=== PATIENT | male | born 1975 | race Two or more races ===

== ENCOUNTER 2017-07-16 12:00 | Observation (INO) | payer SELFPAY ==
[2017-07-16] MEDS ORDERED: Morphine INJ* 4 MG/ML 1 ML CARPUJECT IV ONE (12:16)
[2017-07-16] MEDS ORDERED: ceFAZolin 1 GM VIAL(*) 1 GM in NS 0.9% 50 ML* 50 ML IVPB ONE (12:18)
[2017-07-16] MEDS ORDERED: Tetan/Diph/Pertus SYR(Tdap)* 0.5 ML SYR(BOOSTRIX) use SYR IM ONE (12:28)
[2017-07-16] MEDS ORDERED: NS 0.9% 1000 ML* 1,000 ML IV ONE (12:28)
[2017-07-16] MEDS ORDERED: ceFAZolin 1 GM ADVAN(*) 1 GM in NS 0.9% 50 ML* 50 ML IVPB ONE (12:30)
[2017-07-16 13:27] LABS: Hematocrit 41 % (42-52); Hemoglobin 14.1 g/dl (14.0-18.0); Mean Corpuscular HGB Conc 34 g/dl (31-36); Mean Corpuscular Hemoglobin 30 pg (27-31); Mean Corpuscular Volume 87 fL (80-94); Mean Platelet Volume 8 um3 (7.4-10.4); Red Blood Count 4.72 10^6/ul (4.0-5.4); Red Cell Distribution Width 13 % (10.5-15); White Blood Count 15.7 10^3/ul (3.5-10.8)
--- NOTE | 2017-07-16 13:35 | RAD ---
Indication: Left thumb injury. 3 views of left thumb demonstrates a comminuted fracture through the medial middle phalanx of the thumb with soft tissue injury. IMPRESSION: Oblique fracture proximal phalanx of the thumb with soft tissue defect.
--- NOTE | 2017-07-16 13:36 | RAD ---
Indication: Indication: Wrist injury. 3 views of the left wrist demonstrates no fracture. Fracture of the proximal phalanx of the thumb is noted. There is a large soft tissue defect in the volar aspect of the hand and wrist. IMPRESSION: Fracture of the proximal phalanx of the thumb, large soft tissue defect on the volar aspect of the distal forearm and hand.
[2017-07-16 13:41] LABS: BUN/Creatinine Ratio 17.3 (8-20); Calcium 8.5 mg/dL (8.6-10.3); EGFR African American 147.6 (>60); EGFR Non-African American 114.8 (>60); Globulin 2.4 g/dL (2-4); Potassium 3.6 mmol/L (3.5-5.0); Total Protein 6.4 g/dL (6.4-8.9)
[2017-07-16] MEDS ORDERED: oxyCODONE TAB* 5 MG TAB PO PRN (15:11)
[2017-07-16] MEDS ORDERED: Acetaminophen TAB* 325 MG PO PRN (15:11)
[2017-07-16] MEDS ORDERED: Ondansetron TAB* 4 MG PO PRN (15:11)
[2017-07-16] MEDS ORDERED: oxyCODONE/Acetamin 5/325 MG* TAB PO PRN (15:11)
[2017-07-16] MEDS ORDERED: Morphine INJ* 2 MG/ML 1 ML SYRINGE (TWO MG - NEW SYRINGE VERSION) IV PRN (15:11)
[2017-07-16] MEDS ORDERED: diPHENhydraMINE IV* 50 MG/ML 1 ml VIAL (BENADRYL) IV PRN (15:11)
[2017-07-16] MEDS ORDERED: Ondansetron INJ* 2 MG/ML VIAL IV PRN (15:11)
[2017-07-16] MEDS ORDERED: HYDROmorphone INJ* 2 MG/ML CARPUJECT SYRINGE IV SLOW PU ONE (15:28)
[2017-07-16] MEDS ORDERED: HYDROmorphone INJ* 2 MG/ML CARPUJECT SYRINGE IV SLOW PU PRN (15:42)
[2017-07-16] MEDS ORDERED: Sodium Citrate/Citric Acid* 15 ML UDC PO ONE (16:46)
[2017-07-16] MEDS ORDERED: ceFAZolin 2 GM PREMIX (*) 2 GM/50 ML BAG IVPB ONE (17:28)
[2017-07-16] MEDS ORDERED: Lidocaine 2% PF * 5 ML VIAL ONE (17:33)
[2017-07-16] MEDS ORDERED: Succinylcholine* 20 MG/ML 10 ML VIAL ONE (17:33)
[2017-07-16] MEDS ORDERED: fentaNYL* 50 MCG/ML 2 ML VIAL (100 MCG VIAL) ONE ×2 (17:33→21:45)
[2017-07-16] MEDS ORDERED: Dexamethasone IV* 4 MG/ML 1 ML (4 MG) ONE (17:33)
[2017-07-16] MEDS ORDERED: Propofol* 10 MG/ML 20 ML BTL IV PUSH ONE (17:33)
[2017-07-16] MEDS ORDERED: Midazolam* 1 MG/ML 2 ML VIAL (2 MG) ONE (18:52)
[2017-07-16] MEDS ORDERED: Bupivacaine 0.25% SDV* 30 ML ONE (19:39)
[2017-07-16] MEDS ORDERED: fentaNYL* 50 MCG/ML 2 ML VIAL (100 MCG VIAL) IV PRN (19:50)
[2017-07-16] MEDS ORDERED: Ketorolac INJ* 30 MG/ML 1 ML VIAL IV PRN (19:50)
--- NOTE | 2017-07-16 21:15 | CONSULT ---
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 Brendon reports decreased sensation and inability to move hand or wrist. He is seen today with a coworker who accompanied him by EMS, patient is Romansh speaking. He has already had multiple view x-rays of his left wrist and hand which show oblique fracture of the left thumb proximal phalanx and significant soft tissue defects of his left thumb extending to radial aspect of his forearm. He has received IV pain medication and 1 dose Ancef in ED. Home medications: NK [No Home Medications Reported] 07/16/17 [History Confirmed 07/16/17] PMH: Patient denies any history of medical problems. PSH: No previous surgeries. PE: Vital Signs Temp Pulse Resp BP Pulse Ox 98.7 F 78 16 130/68 97 07/16/17 16:43 07/16/17 16:43 07/16/17 16:43 07/16/17 16:43 07/16/17 16:43 General: Patient is lying supine in ED gurney appearing uncomfortable, he is alert and oriented, has significant laceration of left arm covered loosely in gauze 4x4s. LUE: Open laceration of left arm extending from distal 1/3 of forearm to just proximal of IP joint of thumb. Tissue is swollen and severed tendons and muscle bellies are visualized. Sensation intact to wrist and decreased on palmar radial hand and palmar digits 1-4. Sensation intact dorsal hand to distal phalanges. Able to wiggle distal phalanges of fingers 4 and 5. Patient not able to extend further flex fingers, wrist, he endorses too severe of pain to try. Full movement at left elbow. Capillary refill brisk. Laboratory Last Values WBC 15.7 10^3/ul (3.5-10.8) H 07/16/17 13:15 RBC 4.72 10^6/ul (4.0-5.4) 07/16/17 13:15 Hgb 14.1 g/dl (14.0-18.0) 07/16/17 13:15 Hct 41 % (42-52) L 07/16/17 13:15 MCV 87 fL (80-94) 07/16/17 13:15 MCH 30 pg (27-31) 07/16/17 13:15 MCHC 34 g/dl (31-36) 07/16/17 13:15 RDW 13 % (10.5-15) 07/16/17 13:15 Plt Count 202 10^3/ul (150-450) 07/16/17 13:15 MPV 8 um3 (7.4-10.4) 07/16/17 13:15 INR (Anticoag Therapy) 0.85 (0.77-1.02) 07/16/17 13:15 APTT 29.3 seconds (26.0-36.3) 07/16/17 13:15 Sodium 137 mmol/L (133-145) 07/16/17 13:15 Potassium 3.6 mmol/L (3.5-5.0) 07/16/17 13:15 Chloride 105 mmol/L (101-111) 07/16/17 13:15 Carbon Dioxide 26 mmol/L (22-32) 07/16/17 13:15 Anion Gap 6 mmol/L (2-11) 07/16/17 13:15 BUN 13 mg/dL (6-24) 07/16/17 13:15 Creatinine 0.75 mg/dL (0.67-1.17) 07/16/17 13:15 Est GFR ( Amer) 147.6 (>60) 07/16/17 13:15 Est GFR (Non-Af Amer) 114.8 (>60) 07/16/17 13:15 BUN/Creatinine Ratio 17.3 (8-20) 07/16/17 13:15 Glucose 104 mg/dL (70-100) H 07/16/17 13:15 Calcium 8.5 mg/dL (8.6-10.3) L 07/16/17 13:15 Total Bilirubin 2.00 mg/dL (0.2-1.0) H 07/16/17 13:15 AST 31 U/L (13-39) 07/16/17 13:15 ALT 33 U/L (7-52) 07/16/17 13:15 Alkaline Phosphatase 61 U/L (34-104) 07/16/17 13:15 Total Protein 6.4 g/dL (6.4-8.9) 07/16/17 13:15 Albumin 4.0 g/dL (3.2-5.2) 07/16/17 13:15 Globulin 2.4 g/dL (2-4) 07/16/17 13:15 Albumin/Globulin Ratio 1.7 (1-3) 07/16/17 13:15 Blood Type O Positive 07/16/17 13:15 Antibody Screen Negative 07/16/17 13:15 Imaging: Left Wrist XR Radiology Interpretation Completed By: Radiologist - Wrist XR, per radiologist, reveals fracture of the proximal phalanx of the thumb, large soft tissue defect on the volar aspect of the distal forearm and hand. Left Hand XR Radiology Interpretation Completed By: Radiologist - Hand XR, per radiologist, reveals oblique fracture proximal phalanx of the thumb with soft tissue defect. Dr. Matos has reviewed this radiology report. A: Case discussed with Dr. Jose Martin Chi (ortho money position officer) and Dr. 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 P: - Plan to take to OR tonight with Dr. Mabel Oliver, last oral intake 1/2 bottle water at 11:00 am - Labs previously obtained: CBC, BMP, Coag, will add on type and screen - IV Ancef 12:18 pm, plan 2nd dose within hour of surgery - Patient will be admitted to short stay surgical services - Dr. Matos notified of admission and plan Destiney Yip PA-C
[2017-07-16] MEDS ORDERED: Morphine INJ* 4 MG/ML 1 ML CARPUJECT IV PRN (21:27)
--- NOTE | 2017-07-16 21:39 | ED ---
Tiffanie Vargas Nilda, scribed for Daren Matos MD on 07/16/17 at 1232 . Adult Trauma - HPI Summary HPI Summary: This patient is a 42 year old M BIBA to [facility] accompanied by friend with a chief complaint of laceration to LUE (from left thumb to mid arm) at around 1000 today. 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 The patient rates the pain 9/10 in severity. Symptoms aggravated by palpation and movement. Pain alleviated by rest and morphine administered by EMS TIRE REPAIRMAN. Per triage note, pt has very little feeling and decreased ability to move fingers. Pt states he has not had a tetanus shot for 12 years. Pt is Hebrew speaking and his friend served as lamp inspector. - History of Current Complaint Chief Complaint: EDExtremityUpper Stated Complaint: LT ARM/HAND LAC Time Seen by Provider: 07/16/17 12:15 Hx Obtained From: Patient, Other: - friend Mechanism of Injury: Incised Ambulatory at the Scene: Yes Loss of Consciousness: no loss of consciousness Onset/Duration: Started Hours Ago, Traumatic, Still Present Onset of Pain: Immediate Onset Severity: Severe Current Severity: Severe Pain Intensity: 9 Pain Scale Used: 0-10 Numeric Location: Extremities - left arm Character: Sharp Aggravating Factor(s): Movement, Palpation Alleviating Factor(s): Rest, Medications - Morphine Associated Signs & Symptoms: Positive: Other: - LUE pain, very little feeling and decreased ability to move fingers Related History: Occupational Injury - Allergy/Home Medications Allergies/Adverse Reactions: Allergies Allergy/AdvReac Type Severity Reaction Status Date / Time No Known Allergies Allergy Verified 07/16/17 12:18 Home Medications: Home Medications NK [No Home Medications Reported] 07/16/17 [History Confirmed 07/16/17] PMH/Surg Hx/FS Hx/Imm Hx Endocrine/Hematology History: Denies: Hx Diabetes Cardiovascular History: Denies: Hx Hypertension Infectious Disease History: No Infectious Disease History: Denies: Traveled Outside the [place] in Last 30 Days - Family History Known Family History: Negative: Cardiac Disease, Hypertension - Social History 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 Negative: Myalgia, Edema Negative: Rash Neurological: Other - negative dizziness All Other Systems Reviewed And Are Negative: Yes Physical Exam - Summary Physical Exam Summary: Constitutional: Well-developed, Well-nourished, Alert, Cooperative, Pain distress Skin: Warm, Dry HENT: Normocephalic; No Racoons eyes; No battles sign; No abrasion; No contusion ; No hemotympanum; No maxilla facial tenderness or instability; Dentition are smooth; No dental trauma; No trismus Eyes: EOM normal, PERRL Neck: Trachea is midline. No stridor; No JVD; No step off; No posterior cervical spine tenderness Cardio: Rhythm regular, rate normal Heart sounds normal; Intact distal pulses; The pedal pulses are 2+ and symmetric. Radial pulses are 2+ and symmetric. Pulmonary/Chest wall: Effort normal; Breath sounds normal; Equal chest rise; No flail segment; No rib tenderness; No sternal tenderness Abd: Soft, Appearance normal. No distension; No tenderness; No palpable pulsatile mass; No Cullens sign; No Cordova-Turners sign Musculoskeletal: No paraspinal tenderness; No step off or deformity of the spine ; Pelvis is stable to lateral compression and rock; Tendons appear grossly interrupted over the dorsal midline aspect of left thumb extending group home up forearm; Radial artery seems to be spared; Capillary refill less than 2 seconds in fingers; sensation diminished in all fingers'; fingers held in flexion; pt unable to flex wrist, unable to move thumb Neuro: Alert, Oriented x3 : DEFERRED Psych: Mood and affect Normal Triage Information Reviewed: Yes Vital Signs On Initial Exam: Initial Vitals Temp Pulse Resp BP Pulse Ox 98.2 F 76 16 134/94 100 07/16/17 12:13 07/16/17 12:13 07/16/17 12:13 07/16/17 12:13 07/16/17 12:13 Vital Signs Reviewed: Yes Diagnostics - Vital Signs Vital Signs Temp Pulse Resp BP Pulse Ox 07/16/17 12:13 98.2 F 76 16 134/94 100 - Laboratory Lab Results: Lab Results 07/16/17 07/16/17 07/16/17 Range/Units 13:15 13:15 13:15 WBC 15.7 H (3.5-10.8) 10^3/ul RBC 4.72 (4.0-5.4) 10^6/ul Hgb 14.1 (14.0-18.0) g/dl Hct 41 L (42-52) % MCV 87 (80-94) fL MCH 30 (27-31) pg MCHC 34 (31-36) g/dl RDW 13 (10.5-15) % Plt Count 202 (150-450) 10^3/ul MPV 8 (7.4-10.4) um3 INR (Anticoag Therapy) 0.85 (0.77-1.02) APTT 29.3 (26.0-36.3) seconds Sodium 137 (133-145) mmol/L Potassium 3.6 (3.5-5.0) mmol/L Chloride 105 (101-111) mmol/L Carbon Dioxide 26 (22-32) mmol/L Anion Gap 6 (2-11) mmol/L BUN 13 (6-24) mg/dL Creatinine 0.75 (0.67-1.17) mg/dL Est GFR ( Amer) 147.6 (>60) Est GFR (Non-Af Amer) 114.8 (>60) BUN/Creatinine Ratio 17.3 (8-20) Glucose 104 H (70-100) mg/dL Calcium 8.5 L (8.6-10.3) mg/dL Total Bilirubin 2.00 H (0.2-1.0) mg/dL AST 31 (13-39) U/L ALT 33 (7-52) U/L Alkaline Phosphatase 61 (34-104) U/L Total Protein 6.4 (6.4-8.9) g/dL Albumin 4.0 (3.2-5.2) g/dL Globulin 2.4 (2-4) g/dL Albumin/Globulin Ratio 1.7 (1-3) Blood Type Antibody Screen 07/16/17 Range/Units 13:15 WBC (3.5-10.8) 10^3/ul RBC (4.0-5.4) 10^6/ul Hgb (14.0-18.0) g/dl Hct (42-52) % MCV (80-94) fL MCH (27-31) pg MCHC (31-36) g/dl RDW (10.5-15) % Plt Count (150-450) 10^3/ul MPV (7.4-10.4) um3 INR (Anticoag Therapy) (0.77-1.02) APTT (26.0-36.3) seconds Sodium (133-145) mmol/L Potassium (3.5-5.0) mmol/L Chloride (101-111) mmol/L Carbon Dioxide (22-32) mmol/L Anion Gap (2-11) mmol/L BUN (6-24) mg/dL Creatinine (0.67-1.17) mg/dL Est GFR ( Amer) (>60) Est GFR (Non-Af Amer) (>60) BUN/Creatinine Ratio (8-20) Glucose (70-100) mg/dL Calcium (8.6-10.3) mg/dL Total Bilirubin (0.2-1.0) mg/dL AST (13-39) U/L ALT (7-52) U/L Alkaline Phosphatase (34-104) U/L Total Protein (6.4-8.9) g/dL Albumin (3.2-5.2) g/dL Globulin (2-4) g/dL Albumin/Globulin Ratio (1-3) Blood Type O Positive Antibody Screen Negative Result Diagrams: 17 13:15 07/16/17 13:15 Lab Statement: Any lab studies that have been ordered have been reviewed, and results considered in the medical decision making process. - Radiology Wrist XR Radiology Interpretation Completed By: Radiologist - Wrist XR, per radiologist, reveals fracture of the proximal phalanx of the thumb, large soft tissue defect on the volar aspect of the distal forearm and hand. Dr. Matos has reviewed this radiology report. Hand XR Radiology Interpretation Completed By: Radiologist - Hand XR, per radiologist, reveals oblique fracture proximal phalanx of the thumb with soft tissue defect. Dr. Matos has reviewed this radiology report. Adult Trauma Course/Dx - Course Assessment/Plan: This patient is a 42 year old M BIBA to [facility] accompanied by friend with a chief complaint of laceration to LUE (from left thumb to mid arm) at around 1000 today. 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 The patient rates the pain 9/10 in severity. Symptoms aggravated by palpation and movement. Pain alleviated by rest and morphine administered by EMS TIRE REPAIRMAN. Per triage note, pt has very little feeling and decreased ability to move fingers. Pt states he has not had a tetanus shot for 12 years. Pt is Hebrew speaking and his friend served as lamp inspector. In the ED course, the patient was given morphine, cefazolin, Tdap, and IV fluids. Pending Hand and Wrist XR. Hand XR, per radiologist, reveals oblique fracture proximal phalanx of the thumb with soft tissue defect. Wrist XR, per radiologist, reveals fracture of the proximal phalanx of the thumb, large soft tissue defect on the volar aspect of the distal forearm and hand. Dr. Matos has reviewed these radiology reports. [1315] Dr. Chi (hand surgeon) agrees to send team down to ED to evaluate pt. [1335] Dr. Chi would like to know if pt can go to his office for evaluation but Dr. Matos notes pt is currently receiving IV fluids and meds in ED. [1532] Destiney ( Ortho PA) states pt will be admitted for same day surgery. Pt is stable and will be admitted for same day surgery in OR with Dx of tendon laceration of hand and tendon laceration of forearm. Pt understands and is agreeable with this plan. 45 mins CCT. - Diagnoses Provider Diagnoses: Hand laceration involving tendon, Forearm laceration involving tendon - Physician Notifications Discussed Care Of Patient With: Nicola Chi - Hand surgeon Time Discussed With Above Provider: 13:15 Instructed by Provider To: MD Will See In ED - agrees to send team down to ED to evaluate pt. - Critical Care Time Critical Care Time: 30-74 min - 45 mins Discharge - Discharge Plan Condition: Stable Disposition: ADMITTED TO [facility] documentation as recorded by the Tiffanie gottlieb Nilda accurately reflects the service I personally performed and the decisions made by Carlo grider Jerry, MD.
[2017-07-16] MEDS ORDERED: Ketorolac INJ* 30 MG/ML 1 ML VIAL ONE (21:45)
[2017-07-16] MEDS: oxyCODONE/Acetamin 5/325 MG* TAB PO PRN (23:49)
[2017-07-17] MEDS: ceFAZolin 1 GM VIAL(*) 1 GM in NS 0.9% 50 ML* 50 ML IVPB SCH ×2 (01:50→10:07)
--- NOTE | 2017-07-17 04:22 | OP ---
DATE OF OPERATION: 07/16/17 - ROOM #347 DATE OF : 77 SURGEON: Carmelo Oliver MD POULTRY HATCHERY MAN: KIRAN Martines. An volunteer assistant was needed for the procedure to aid in positioning of the arm retraction. ANESTHESIOLOGIST: Dr. Puentes. ANESTHESIA: General. PRE-OP DIAGNOSIS: Table saw injury left forearm, wrist, hand and thumb with tendon and bony injury. POST-OP DIAGNOSIS: Table saw injury left forearm, wrist, hand and thumb with tendon and bony injury. OPERATIVE PROCEDURE: 1. Exploration of penetrating left forearm wound including the median nerve, radial artery, and tendons 2. Debridement of skin, subcutaneous tissue, muscle and bone of left thumb proximal phalanx intraarticular open fracture. 3. Debridement of the skin and subcutaneous tissue, muscle and fascia left forearm wrist and hand. 4. Open reduction internal fixation of left thumb proximal phalanx intraarticular open fracture. 5. Irrigation and debridement of left thumb open metacarpophalangeal traumatic arthrotomy. 6. Repair of radial collateral ligament, left thumb metacarpophalangeal joint. 7. Repair of the left flexor pollicis longus tendon in the level of the thenar musculature. 8. Repair of the left thumb partial extensor tendon laceration over the proximal phalanx. 9. Ligation of the lacerated left radial artery. 10. Excision of the left flexor carpi radialis tendon. 11. Closure of traumatic wound measuring 30 cm. 12. Left carpal tunnel release. INDICATIONS: Brendon had a day very extensive table saw injury to the volar radial aspect of the left forearm, the volar radial wrist through the thenar musculature and up onto the left thumb. There was an open left thumb metacarpophalangeal joint with an open fracture of the intra-articular left thumb proximal phalanx fracture. Preoperatively, the median nerve has very poor sensation. The thumb was grossly unstable. The hand was warm and well perfused , and despite the likely radial artery injury. I had talked to him about exploring the wound and repairing the tendons and nerve as needed. He had really minimal sensation in the median nerve distribution distally. Sensation was completely normal in the ulnar nerve distribution and over the dorsal radial hand. I had told him that if the median nerve was lacerated given that it was the table saw injury, there would be a very wide zone of injury and would require cable grafting with the sural nerve. I told him that there was a possibility that we would harvest the sural nerve. He understood all of this. We used the translators as he his primarily Upper Sorbian speaking. He wished to proceed. ESTIMATED BLOOD LOSS: 50 mL. COMPLICATIONS: None. FINDINGS: The median nerve was in continuity throughout with the exception of a lacerated motor branch right at the level of the entry point into where it arborized and entered the thenar musculature. This was unrepairable. The remainder of the median nerve was completely in continuity. The FPL tendon was lacerated at the level of the thenar muscles. The remainder of the flexor tendons to all of the fingers were explored and were found to be intact. The dorsal radial sensory nerve was explored and found to be intact. The radial artery was lacerated and at the level of the distal third of the forearm and was unrepairable without vein grafting. DESCRIPTION OF PROCEDURE: Brendon was seen in the preoperative holding area with the use of a director oracle. We went ahead and got informed consent, discussed his injury. We talked about risks and benefits including the expected recovery. He understood that the nerve if lacerated would likely require cable grafting and that nerve recovery in a 41-year-old is unpredictable. We then came back to the operating room where the arm was prepped and draped in the usual fashion with Betadine. The leg was prepped out with ChloraPrep. A time-out was performed. I began by exsanguinating the arm with the Esmarch and the tourniquet was inflated to 250 mmHg. The traumatic incision was then extended proximally in a curvilinear fashion. The dissection was carried down where I made the incision to the fascia, the fascia there was opened. The median nerve and radial neurovascular bundle were encountered proximally and healthy tissue. These were then dissected out distally. The radial artery was lacerated at the distal third of the forearm and had a quite extensive zone of injury. The brachioradialis had a small partial laceration that was debrided. The radial sensory nerve was seen to be intact, exiting out the dorsal to the brachioradialis. The median nerve was encountered proximally and healthy tissue and dissected out distally. The motor branch was lacerated right where it branched and entered the thenar muscles just on the radial aspect of the transverse carpal ligament, this was unrepairable. The remainder of the nerve was completely in continuity and I did not see any partial lacerations in the median nerve. When I got distal in order to obtain adequate visualization and also given the magnitude of his injury and need for extensive tourniquet during the operation causing reperfusion swelling and given his preop median nerve symptoms, I did go ahead decompress the carpal tunnel. I made a 2 to 3 cm incision in the standard location for an open carpal tunnel release. Dissection was carried down. The palmar fascia was incised. I went ahead and released the transverse carpal ligament just at the radial aspect of the hook of the hamate. Proximally , I brought my incision back radially to the traumatic wound. Dissection was carried down very carefully and the palmar cutaneous branch in the median nerve was identified and preserved throughout the entirety of the case. With the carpal tunnel fully released, I was able to inspet the median nerve all the way down into where it branched into the common digital nerves and it was indeed intact throughout the entirety of the course with the exception of the thenar motor branch laceration as previously mentioned. At this point, the FPL tendon was seen lacerated, the FCR tendon was completely lacerated and shredded over a couple of centimeter segment. The FPL laceration was more clean. I went ahead and released the transverse carpal ligament just off its radial aspect and then dissected down through the thenar muscles to encounter the distal stump of the FPL tendon. The thenar muscles were already 80% lacerated. I went ahead and found the proper digital nerves in the base of the wound. The FPL tendon again was lacerated proximal to the proper digital nerves. Once I had identified all the structures, I went ahead and performed an irrigation and debridement of my open fracture and my traumatic arthrotomy to the MCP joint. The radial collateral ligament had been sheared off the metacarpal head. I was able to after cleaning out the open fracture reduced it and fixation was performed with 2 traversing 0.045 K-wires. The articular surface actually reduced very nicely. The MCP joint was then reduced and pinned in place with another 0.045 K-wire crossing the joint. With the fracture reduced and fixed and the joint pinned into place, I went ahead and was able to easily oppose the radial collateral ligament to the radial aspect of the metacarpal head where it had been sheared off. I went ahead and placed a Mini Mitek suture anchor in the footprint of the ligament and then repaired the radial collateral ligament back to its origin with the 2-0 Ethibond suture coming off the suture anchor. At this point, I went ahead and examined my extensor tendon. There was a 60% partial laceration across the proximal phalanx , it was opposable. The edges of the partial laceration were opposable. I went ahead and took a 3-0 Ethibond suture and placed a couple of figure-of- eight sutures to oppose the tendon edges and that actually came together pretty nicely. Once the extensor tendon laceration was repaired, I went ahead and turned my attention to the FPL tendon. I pinned it in near apposition with a 25-gauge hypodermic needle. I then placed a 4-strand cruciate core suture with 3-0 Ethibond and apposed the edges of the tendon. There was no gapping with passive motion. The edges of the repair were secured with a 5-0 Prolene epitendinous suture. With the tendon repaired, I went ahead and placed it back inside the carpal tunnel and repaired the radial aspect of the transverse carpal ligament with a few 3-0 Vicryl [id number] sutures. I then came proximally and decided that my FCR tendon was simply not repairable given that it was shredded over a multi-centimeter segment, so I went ahead and took this back to the musculotendinous junction and excised the tendon. The ends of the radial artery were ligated with 3-0 Vicryl suture. At this point, the wound was copiously irrigated. I went ahead and took a 15 blade and excised the very traumatized millimeter or two off of each skin edge over the traumatic wound. Once it was all clean healthy edges, I went ahead and took the stapler and closed the wound proximally. When I got to the level of the wrist joint, I closed the remainder of the wound with 3-0 and then 4-0 nylon suture. The carpal tunnel release incision was likewise closed with the nylon suture. The operative area was infiltrated with 0.25% plain Marcaine. The wounds were dressed with Xeroform, 4x4s, sterile Webril. The 3 K-wires were bent and clipped and dressed with Xeroform and 4x4s. I then placed a very loose thumb Spica splint with a volar cock-up slab of plaster as well. The tourniquet was deflated during wound closure. The hand pinked up immediately. Total tourniquet time was 131 minutes. After the splint placement, the patient was woken up and taken to recovery room in stable condition. [id number]/[facility] #: [id number] LINDA
[2017-07-17 05:46] LABS: Hematocrit 38 % (42-52); Hemoglobin 12.9 g/dl (14.0-18.0)
[2017-07-17 06:13] LABS: BUN/Creatinine Ratio 14.3 (8-20); Calcium 8.3 mg/dL (8.6-10.3); EGFR African American 159.8 (>60); EGFR Non-African American 124.3 (>60); Potassium 3.7 mmol/L (3.5-5.0)
[2017-07-17] MEDS: oxyCODONE/Acetamin 5/325 MG* TAB PO PRN ×3 (07:52→15:41)
--- NOTE | 2017-07-17 08:36 | PN ---
Progress Note - Progress Note Date of Service: 07/17/17 SOAP: Subjective: []Patient seen at bedside. His pain is well controlled. He has no chest pain, shortness of breath, fever, nausea or dizziness. Objective: [] Vital Signs Temp 97.5 F 07/17/17 07:51 Pulse 72 07/17/17 07:51 Resp 18 07/17/17 07:52 BP 113/62 07/17/17 07:51 Pulse Ox 97 07/17/17 07:51 Intake & Output 07/16/17 07/17/17 07/17/17 18:59 06:59 18:59 Intake Total 1100 1800 0 Output Total 1500 600 Balance 1100 300 -600 Weight 140 lb 140 lb Intake: IV Fluids 1100 1100 LR 1100 NS 50ML, Cefazolin 2G 50 Oral 700 0 Output: Urine 1100 600 Duran 400 Other: Estimated Blood Loss 100 Comment Laboratory Last Values WBC 15.7 10^3/ul (3.5-10.8) H 07/16/17 13:15 RBC 4.72 10^6/ul (4.0-5.4) 07/16/17 13:15 Hgb 12.9 g/dl (14.0-18.0) L 07/17/17 05:19 Hct 38 % (42-52) L 07/17/17 05:19 MCV 87 fL (80-94) 07/16/17 13:15 MCH 30 pg (27-31) 07/16/17 13:15 MCHC 34 g/dl (31-36) 07/16/17 13:15 RDW 13 % (10.5-15) 07/16/17 13:15 Plt Count 202 10^3/ul (150-450) 07/16/17 13:15 MPV 8 um3 (7.4-10.4) 07/16/17 13:15 INR (Anticoag Therapy) 0.85 (0.77-1.02) 07/16/17 13:15 APTT 29.3 seconds (26.0-36.3) 07/16/17 13:15 Sodium 135 mmol/L (133-145) 07/17/17 05:19 Potassium 3.7 mmol/L (3.5-5.0) 07/17/17 05:19 Chloride 102 mmol/L (101-111) 07/17/17 05:19 Carbon Dioxide 27 mmol/L (22-32) 07/17/17 05:19 Anion Gap 6 mmol/L (2-11) 07/17/17 05:19 BUN 10 mg/dL (6-24) 07/17/17 05:19 Creatinine 0.70 mg/dL (0.67-1.17) 07/17/17 05:19 Est GFR ( Amer) 159.8 (>60) 07/17/17 05:19 Est GFR (Non-Af Amer) 124.3 (>60) 07/17/17 05:19 BUN/Creatinine Ratio 14.3 (8-20) 07/17/17 05:19 Glucose 129 mg/dL (70-100) H 07/17/17 05:19 Calcium 8.3 mg/dL (8.6-10.3) L 07/17/17 05:19 Total Bilirubin 2.00 mg/dL (0.2-1.0) H 07/16/17 13:15 AST 31 U/L (13-39) 07/16/17 13:15 ALT 33 U/L (7-52) 07/16/17 13:15 Alkaline Phosphatase 61 U/L (34-104) 07/16/17 13:15 Total Protein 6.4 g/dL (6.4-8.9) 07/16/17 13:15 Albumin 4.0 g/dL (3.2-5.2) 07/16/17 13:15 Globulin 2.4 g/dL (2-4) 07/16/17 13:15 Albumin/Globulin Ratio 1.7 (1-3) 07/16/17 13:15 Blood Type O Positive 07/16/17 13:15 Antibody Screen Negative 07/16/17 13:15 General: Well appearing, in no acute distress LUE: Splint in place, CDI. Digits 4 and 5 with good ROM and intact sensation. Digits 2 and 3 with intact but decreased sensation, very minimal and inconsistent ability to produce any movement. 1st digit with only distal tip exposed lacks sensation entirely, no ROM but also limited by splint. Capillary refill brisk throughout all distal digits. Assessment: []POD 1 s/p repair of extensive saw related injury to left hand including - ORIF of left thumb proximal phalynx intraarticular open fracture - tendon and ligament repair - carpal tunnel release Plan: []May DC home today after receiving 3 doses of cefazolin. Will DC home on keflex 500 mg TID x 5 days LUE: Encouraged ROM of fingers. Use other hand to gently wiggle tip of thumb Leave splint Clean, dry, intact. See Dr. Oliver in office in 1 week 07/24/17 Patient and I were able to converse well through primarily Greek with some Namibian. Nurse Euceda and Hospital Aide Anila who speaks Namibian fluently were also present during our discharge instruction to ensure understanding.
[2017-07-17] MEDS ORDERED: Docusate CAP* 100 MG PO SCH (09:00)
[2017-07-17] MEDS ORDERED: Influenza VAC *QUAD* 2017-18* 0.5 ML SYRINGE IM ONE (09:00)
[2017-07-17 16:19] VITALS: BP 121/83
[2017-07-17] MEDS ORDERED: ceFAZolin 1 GM VIAL(*) 1 GM in D5W 50 ML BAG* 50 ML IVPB SCH (18:00)
--- NOTE | 2017-07-18 06:04 | DS ---
DISCHARGE SUMMARY: DATE OF ADMISSION: 07/16/17 DATE OF DISCHARGE: 07/17/17 DATE OF OPERATION: 07/16/17 DATE OF SERVICE: 07/17/17 PROVIDER/SURGEON: Dr. Carmelo Oliver * (DICTATED BY KIRAN HEALY) UX LEAD: KIRAN Martines PREOPERATIVE DIAGNOSIS: Table saw injury of left forearm, wrist, hand and thumb with tendon and bony injury. OPERATIVE PROCEDURES: 1. Exploration of penetrating left forearm wound. 2. Debridement of the skin, subcutaneous tissue, muscle and bone of left thumb proximal phalanx intraarticular open fracture. 3. Debridement of the skin and subcutaneous tissue, left forearm wound. 4. Open reduction and internal fixation of the left thumb proximal phalanx intraarticular open fracture. 5. Irrigation and debridement of the left thumb open metacarpophalangeal traumatic arthrotomy. 6. Repair of radial collateral ligament, left thumb metacarpophalangeal joint. 7. Repair of the left flexor pollicis longus tendon in the level of the thenar musculature. 8. Repair of the left thumb partial extensor tendon laceration over the proximal phalanx. 9. Ligation of the cut, left radial artery. 10. Excision of the left flexor carpi radialis tendon. 11. Closure of traumatic wound measuring 30 cm. 12. Left carpal tunnel release. HISTORY: On 07/16/17, Mr. Malathi Vann had an extensive table saw injury to the volar radial aspect of the left forearm, wrist, and through the thenar musculature up into the left thumb. There was open left thumb MCP joint with an open fracture of the intraarticular left thumb proximal phalanx fracture. Preoperatively, the median nerve had very poor sensation. The thumb was grossly unstable. The hand was warm and well perfused, despite the likely radial artery injury. Sensation was completely normal in the ulnar nerve distribution and over the dorsal radial hand. HOSPITAL COURSE: The patient was admitted to [facility] on . On the same day, he underwent surgery by Dr. Oliver to correct the tablesaw injury to his left forearm, wrist, hand and thumb, which was uncomplicated. Postoperatively, he was transferred to the PACU and subsequently to the short stay surgical unit in stable condition. On postop day 1, his H and H was 12.9/ 38. Vital signs; temperature 97.9, pulse 73, respiratory rate 16, oxygen saturation 100, blood pressure 121/83. His pain was well controlled with Percocet. On exam, he was well appearing and in no acute distress, lying in bed. Left upper extremity: Splint was in place. It was clean, dry and intact. Digits 4 and 5 had good range of motion and intact sensation. Digits 2 and 3 with intact but decreased sensation and very minimal and inconsistent ability to produce any movement whatsoever. First digit was mostly covered by the splint with only the distal aspect showing. The distal aspect of the first digit does lack sensation entirely. Capillary refill was brisk throughout all digits. While in hospice, the patient was given 3 doses of IV cefazolin. Once this antibiotic has finished, the patient will be permitted to be discharged. He is deemed to be medically and orthopedically stable for discharge. DISCHARGE MEDICATIONS: 1. Tylenol 325 mg tablet, may take 650 mg p.o. q. 4 hours p.r.n. 2. Percocet 5/325 mg tablet 1 to 2 tabs p.o. q. 4 to 6 hours p.r.n., not to exceed 10 tabs in a day and not to exceed 4000 mg of Tylenol from all sources including acetaminophen as well as Percocet. 3. Keflex 500 mg p.o. t.i.d. for 5 days. 4. Docusate 100 mg p.o. t.i.d. as needed. DISCHARGE INSTRUCTIONS: Keep splint and dressing clean, dry and intact, do not remove it. Move your fingers on the injured hand as you are able or to gain motion of all exposed digits. Please use your right hand to very gently wiggle the tip of the thumb to regain motion in this digit as well. Keflex 500 mg tablets every 8 hours for 5 days, Percocet 5/325 mg tabs 1 to 2 tabs every 4 to 6 hours as needed for pain, Colace 100 mg 3 times a day as needed for constipation. Follow up with Dr. Oliver in his office, 07/24/17. Discharge plan was discussed by myself with the patient as well as nurse, Kinsey, and hospital aide, Anila. KIRAN HEALY [id number]/[facility] #: [id number] [facility]
== END 2017-07-17 17:35 | disposition home or self-care (01) ==
LOC: ED 12:00 → OR 16:36 → SSU 23:14 → INTOOBSV 23:14
PROVIDERS: ADMIT Orthopaedic Surgery Hand Surgery; ATTEND Orthopaedic Surgery Hand Surgery
DX: S61.012A Laceration without foreign body of left thumb without damage to nail, initial encounter (principal); S61.512A Laceration without foreign body of left wrist, initial encounter; W29.8XXA Contact with other powered hand tools and household machinery, initial encounter; Y92.61 Building [any] under construction as the place of occurrence of the external cause
CPT/HCPCS: 36415; 80048; 80053; 85014; 85018; 85027; 85610; 85730; 86850; 86900; 86901; 90471; 90686; 90715; 96374; 96375; 99285; A9270-GY; C1713; C1776; G0378; G8987-GO-CI; G8988-GO-CI; G8989-GO-CI; J0330; J0690; J1100; J1170; J1885; J2250; J2270; J2704; J3010